=== PATIENT | female | born 1940 | race Caucasian/White ===

== ENCOUNTER 2024-09-14 17:35 | Inpatient (IN) | payer MEDICARE ==
[2024-09-14 18:04] LABS: HEMATOCRIT 40.4 % (34.3-46.0); HEMOGLOBIN 13.3 g/dL (11.2-15.5); MEAN CORPUSCULAR HGB CONC 32.9 g/dL (31.6-35.5); MEAN CORPUSCULAR VOLUME 85.1 fL (81.4-99.0); PLATELET COUNT,PLT 160 K/uL (130-375); RED BLOOD CELL COUNT 4.75 M/uL (3.77-5.24); WHITE BLOOD CELL COUNT,WBC 17.5 K/uL (3.2-11.0)
[2024-09-14 18:18] LABS: ATYPICAL LYMPHOCYTES RARE; BAND ABSOLUTE MAN 0.18 K/uL; BAND PERCENT MAN 1 % (5-11); EOSINOPHILS PERCENT MAN 4 % (2-4); LYMPHOCYTES PERCENT MAN 60 % (24-44); MONOCYTES PERCENT MAN 4 % (2-6); NEUTROPHILS ABSOLUTE MAN 5.43 K/uL (1.0-7.6); SEG NEUTROPHILS PERCENT MAN 31 % (36-66)
[2024-09-14 18:20] LABS: ANION GAP 11.2 mmol/L (5.0-14.0); CALCIUM 9.5 mg/dL (8.5-10.1); CREATININE 0.5 mg/dL (0.6-1.0); EST CRCL DRUG DOSING (CG) 57.25 mL/min; POTASSIUM,K 3.2 mmol/L (3.6-5.2)
[2024-09-14 18:43] LABS: A/G RATIO 1.2 (1.2-2.2); ALANINE AMINOTRANSFERASE,ALT 34 U/L (12-78); ALBUMIN 3.8 g/dL (3.4-5.0); ALKALINE PHOSPHATASE 118 U/L (46-116); ASPARTATE AMNIOTRANSFERASE,AST 35 U/L (15-37); BILIRUBIN DIRECT 0.09 mg/dL (0.0-0.2); BILIRUBIN TOTAL 0.3 mg/dL (0.2-1.0); PROTEIN TOTAL,TP 6.9 g/dL (6.4-8.2)
[2024-09-14] MEDS ORDERED: Ondansetron 4 MG/2 ML SDV IV PRN (18:57)
[2024-09-14] MEDS: fentaNYL 50 MCG/ML SDV IVPUSH PRN (19:44)
[2024-09-14] MEDS ORDERED: fentaNYL 50 MCG/ML SDV IVPUSH PRN (20:52)
[2024-09-14] MEDS: Cyclobenzaprine 10 MG Tab PO PRN (22:52)
[2024-09-14] MEDS: Lactated Ringers 1,000 ML IV SCH (22:53)
[2024-09-14] MEDS: fentaNYL 50 MCG/ML SDV IVPUSH SCH (22:53)
[2024-09-15] MEDS: fentaNYL 50 MCG/ML SDV IVPUSH PRN (00:05)
[2024-09-15 12:51] LABS: BASOPHILS ABSOLUTE AUTO 0.07 K/uL (0.00-0.10); BASOPHILS PERCENT AUTO 0.5 % (0.1-1.3); EOSINOPHILS PERCENT AUTO 0.1 % (0.0-5.4); HEMATOCRIT 27.4 % (34.3-46.0); HEMOGLOBIN 9.2 g/dL (11.2-15.5); IMMATURE GRAN ABSOLUTE AUTO 0.06 K/uL (0.00-0.23); IMMATURE GRAN PERCENT AUTO 0.4 % (0.0-0.7); LYMPHOCYTES ABSOLUTE AUTO 6.01 K/uL (0.8-3.3); LYMPHOCYTES PERCENT AUTO 40.9 % (11.4-47.7); MEAN CORPUSCULAR HGB CONC 33.6 g/dL (31.6-35.5); MEAN CORPUSCULAR VOLUME 83.5 fL (81.4-99.0); MONOCYTES ABSOLUTE AUTO 0.74 K/uL (0.20-0.90); NEUTROPHILS ABSOLUTE AUTO 7.81 K/uL (1.0-7.6); NEUTROPHILS PERCENT AUTO 53.1 % (40.0-78.1); PLATELET COUNT,PLT 137 K/uL (130-375); RED BLOOD CELL COUNT 3.28 M/uL (3.77-5.24); WHITE BLOOD CELL COUNT,WBC 14.7 K/uL (3.2-11.0)
[2024-09-15 13:00] LABS: EOSINOPHILS ABSOLUTE AUTO 0.02 K/uL (0.00-0.40)
[2024-09-15 13:58] LABS: APPEARANCE,URINE SLIGHTLY CLOUDY (CLEAR); BILIRUBIN,URINE NEGATIVE (NEGATIVE); COLOR,URINE YELLOW (YELLOW); GLUCOSE,URINE NEGATIVE (NEGATIVE); KETONES,URINE 15 mg/dL (NEGATIVE); LEUKOCYTE ESTERASE,URINE NEGATIVE (NEGATIVE); NITRITE,URINE NEGATIVE (NEGATIVE); OCCULT BLOOD,URINE NEGATIVE (NEGATIVE); PH,URINE 5.5 (5.0-8.0); PROTEIN,URINE >=300 mg/dL (NEGATIVE); UROBILINOGEN,URINE 0.2 EU/dL (0.2-1.0)
[2024-09-15] MEDS ORDERED: ceFAZolin 1 GM in Premix Bag 1 BAG IV ONE (14:00)
[2024-09-15 14:07] LABS: AMORPHOUS SEDIMENT,URINE MODERATE; BACTERIA,URINE NOT SEEN; EPITHELIAL CELLS,URINE FEW; MUCUS,URINE NOT SEEN; RBC,URINE 0-5 (0-5); WBC,URINE 0-5 (0-5)
[2024-09-15] MEDS: cefTRIAXone 2 GM in Water For Injection, Sterile 20 ML IV ONE (15:03)
[2024-09-15] MEDS ORDERED: oxyCODONE 5 MG Tab PO PRN (17:52)
[2024-09-15] MEDS: oxyCODONE 5 MG Tab PO PRN (23:42)
[2024-09-16 06:12] LABS: HEMATOCRIT 25.9 % (34.3-46.0); HEMOGLOBIN 8.5 g/dL (11.2-15.5); MEAN CORPUSCULAR HEMOGLOBIN 28.1 pg (31.6-35.5); MEAN CORPUSCULAR HGB CONC 32.8 g/dL (31.6-35.5); MEAN CORPUSCULAR VOLUME 85.5 fL (81.4-99.0); RED BLOOD CELL COUNT 3.03 M/uL (3.77-5.24); WHITE BLOOD CELL COUNT,WBC 12.8 K/uL (3.2-11.0)
[2024-09-16] MEDS ORDERED: fentaNYL 100 MCG/2 ML SDV ONE ×2 (10:24→11:31)
[2024-09-16] MEDS ORDERED: Midazolam 1 MG/ML 2 ML SDV ONE (10:24)
[2024-09-16] MEDS ORDERED: Propofol 200 MG/20 ML SDV ONE ×2 (10:24→10:50)
[2024-09-16] MEDS ORDERED: Dexamethasone 4 MG/ML SDV ONE (10:50)
[2024-09-16] MEDS ORDERED: Sugammadex Sodium 200 MG/2 ML VIAL IV ONE (10:50)
[2024-09-16] MEDS ORDERED: Ondansetron 4 MG/2 ML SDV ONE (10:50)
[2024-09-16] MEDS ORDERED: Phenylephrine 1% 10 MG/ML SDV ONE (11:10)
[2024-09-16] MEDS ORDERED: Sodium Chloride 0.9% 10 ML ONE (11:10)
[2024-09-16] MEDS: cefTRIAXone 2 GM in Sodium Chloride 0.9% 50 ML IV ONE (11:24)
[2024-09-16] MEDS: Bupivacaine 0.25%/EPINEPHrine 1:200,000 30 ML SDV ONE (11:57)
[2024-09-16] MEDS ORDERED: Naloxone 0.4 MG/ML SDV ONE (12:23)
[2024-09-16] MEDS ORDERED: ceFAZolin 1 GM in Sodium Chloride 0.9% 50 ML IV SCH (13:00)
[2024-09-16] MEDS: Acetaminophen 325 MG Tab PO SCH (16:17)
[2024-09-16 20:25] LABS: BASOPHILS ABSOLUTE AUTO 0.05 K/uL (0.00-0.10); BASOPHILS PERCENT AUTO 0.4 % (0.1-1.3); EOSINOPHILS ABSOLUTE AUTO 0.03 K/uL (0.00-0.40); EOSINOPHILS PERCENT AUTO 0.2 % (0.0-5.4); HEMATOCRIT 23.1 % (34.3-46.0); HEMOGLOBIN 7.5 g/dL (11.2-15.5); IMMATURE GRAN ABSOLUTE AUTO 0.06 K/uL (0.00-0.23); IMMATURE GRAN PERCENT AUTO 0.4 % (0.0-0.7); LYMPHOCYTES ABSOLUTE AUTO 4.07 K/uL (0.8-3.3); LYMPHOCYTES PERCENT AUTO 29.5 % (11.4-47.7); MEAN CORPUSCULAR HEMOGLOBIN 28.3 pg (31.6-35.5); MEAN CORPUSCULAR HGB CONC 32.5 g/dL (31.6-35.5); MEAN CORPUSCULAR VOLUME 87.2 fL (81.4-99.0); MONOCYTES ABSOLUTE AUTO 0.94 K/uL (0.20-0.90); MONOCYTES PERCENT AUTO 6.8 % (3.3-12.6); NEUTROPHILS ABSOLUTE AUTO 8.65 K/uL (1.0-7.6); NEUTROPHILS PERCENT AUTO 62.7 % (40.0-78.1); PLATELET COUNT,PLT 120 K/uL (130-375); RED BLOOD CELL COUNT 2.65 M/uL (3.77-5.24); WHITE BLOOD CELL COUNT,WBC 13.8 K/uL (3.2-11.0)
[2024-09-16] MEDS: Aspirin 325 MG Tab.EC PO SCH (21:59)
[2024-09-16] MEDS: ceFAZolin 1 GM in Premix Bag 1 BAG IV SCH (22:07)
[2024-09-17 04:06] LABS: BASOPHILS ABSOLUTE AUTO 0.04 K/uL (0.00-0.10); BASOPHILS PERCENT AUTO 0.3 % (0.1-1.3); EOSINOPHILS ABSOLUTE AUTO 0.07 K/uL (0.00-0.40); EOSINOPHILS PERCENT AUTO 0.6 % (0.0-5.4); HEMATOCRIT 23.3 % (34.3-46.0); HEMOGLOBIN 7.3 g/dL (11.2-15.5); IMMATURE GRAN ABSOLUTE AUTO 0.04 K/uL (0.00-0.23); IMMATURE GRAN PERCENT AUTO 0.3 % (0.0-0.7); LYMPHOCYTES PERCENT AUTO 44.7 % (11.4-47.7); MEAN CORPUSCULAR HEMOGLOBIN 28.1 pg (31.6-35.5); MEAN CORPUSCULAR HGB CONC 31.3 g/dL (31.6-35.5); MEAN CORPUSCULAR VOLUME 89.6 fL (81.4-99.0); MONOCYTES ABSOLUTE AUTO 0.62 K/uL (0.20-0.90); NEUTROPHILS ABSOLUTE AUTO 6.04 K/uL (1.0-7.6); NEUTROPHILS PERCENT AUTO 49.1 % (40.0-78.1); PLATELET COUNT,PLT 120 K/uL (130-375); WHITE BLOOD CELL COUNT,WBC 12.3 K/uL (3.2-11.0)
[2024-09-17 04:22] LABS: CALCIUM 8.5 mg/dL (8.5-10.1); CREATININE 0.7 mg/dL (0.6-1.0); EST CRCL DRUG DOSING (CG) 40.32 mL/min; POTASSIUM,K 3.4 mmol/L (3.6-5.2)
[2024-09-17 04:25] LABS: ANION GAP 9.4 mmol/L (5.0-14.0)
[2024-09-17] MEDS: Potassium Chloride 10 MEQ in Premix Bag 1 BAG IV ONE (06:41)
[2024-09-17] MEDS: Potassium Chloride 20 MEQ Tab.ER PO ONE (08:32)
[2024-09-17] MEDS: Potassium Chloride 20 MEQ Tab.ER ONE (08:34)
[2024-09-17] MEDS ORDERED: Aspirin 81 MG Tab.Chew PO SCH (09:00)
[2024-09-17] MEDS: cefTRIAXone 2 GM in Sodium Chloride 0.9% 50 ML IV SCH (12:35)
[2024-09-17] MEDS: Ketorolac 15 MG/ML SDV IVPUSH ONE (12:36)
[2024-09-17] MEDS: Acetaminophen Soln 650 MG/20.3 ML UD Cup PO SCH (16:03)
[2024-09-17 18:00] LABS: ANAPLASMA PHAGOCYTOPHILUM PCR Not Detected; BABESIA MICROTI BY PCR Not Detected; BABESIA SPECIES BY PCR Not Detected; EHRLICHIA CHAFFEENSIS BY PCR Not Detected; EHRLICHIA EWINGII/CANIS BY PCR Not Detected; EHRLICHIA MURIS-LIKE BY PCR Not Detected
[2024-09-18 08:58] LABS: HEMATOCRIT 30.6 % (34.3-46.0); HEMOGLOBIN 10.1 g/dL (11.2-15.5); MEAN CORPUSCULAR HEMOGLOBIN 29.1 pg (31.6-35.5); MEAN CORPUSCULAR VOLUME 88.2 fL (81.4-99.0); RED BLOOD CELL COUNT 3.47 M/uL (3.77-5.24); WHITE BLOOD CELL COUNT,WBC 14.1 K/uL (3.2-11.0)
[2024-09-18] MEDS ORDERED: cefTRIAXone 1 GM in Sodium Chloride 0.9% 50 ML IV SCH (10:00)
[2024-09-18] MEDS ORDERED: ALPRAZolam 0.25 MG Tab PO PRN (18:39)
[2024-09-18] MEDS: LORazepam 2 MG/ML SDV IM STA ×2 (19:26→20:06)
[2024-09-19 05:48] LABS: HEMATOCRIT 26.5 % (34.3-46.0); HEMOGLOBIN 8.8 g/dL (11.2-15.5); MEAN CORPUSCULAR HEMOGLOBIN 29.6 pg (31.6-35.5); MEAN CORPUSCULAR HGB CONC 33.2 g/dL (31.6-35.5); MEAN CORPUSCULAR VOLUME 89.2 fL (81.4-99.0); RED BLOOD CELL COUNT 2.97 M/uL (3.77-5.24); WHITE BLOOD CELL COUNT,WBC 12.4 K/uL (3.2-11.0)
[2024-09-19] MEDS ORDERED: Haloperidol 1 MG Tab PO PRN (12:26)
[2024-09-19] MEDS: Sennosides 8.6 MG Tab PO SCH (15:10)
[2024-09-19] MEDS: Polyethylene Glycol 3350 Powder 17 GM Packet PO ONE (15:10)
[2024-09-19] MEDS: Melatonin 3 MG Tab PO SCH (21:05)
[2024-09-19] MEDS: Doxycycline 100 MG Cap PO SCH (21:08)
[2024-09-19] MEDS: Cefdinir 300 MG Cap PO SCH (21:09)
[2024-09-20] MEDS: Lisinopril 5 MG Tab PO ONE (00:10)
[2024-09-20] MEDS: Acetaminophen 325 MG Tab PO SCH (04:33)
[2024-09-20 05:00] LABS: HEMATOCRIT 30.1 % (34.3-46.0); HEMOGLOBIN 9.5 g/dL (11.2-15.5); MEAN CORPUSCULAR HEMOGLOBIN 28.4 pg (31.6-35.5); MEAN CORPUSCULAR HGB CONC 31.6 g/dL (31.6-35.5); MEAN CORPUSCULAR VOLUME 89.9 fL (81.4-99.0); RED BLOOD CELL COUNT 3.35 M/uL (3.77-5.24); WHITE BLOOD CELL COUNT,WBC 19.2 K/uL (3.2-11.0)
[2024-09-20 08:19] LABS: A/G RATIO 0.7 (1.2-2.2); ALANINE AMINOTRANSFERASE,ALT 27 U/L (12-78); ALBUMIN 2.6 g/dL (3.4-5.0); ALKALINE PHOSPHATASE 93 U/L (46-116); ASPARTATE AMNIOTRANSFERASE,AST 28 U/L (15-37); BILIRUBIN TOTAL 0.6 mg/dL (0.2-1.0); BLOOD UREA NITROGEN,BUN 14 mg/dL (7-18); C-REACTIVE PROTEIN 10.81 mg/dL (<0.50); CALCIUM 9.7 mg/dL (8.5-10.1); CARBON DIOXIDE,CO2 33 mmol/L (21-32); CHLORIDE,CL 105 mmol/L (100-108); CREATININE 0.6 mg/dL (0.6-1.0); EST CRCL DRUG DOSING (CG) 47.04 mL/min; ESTIMATED GFR 87 mL/min (>60); GLUCOSE RANDOM 121 mg/dL (74-106); MAGNESIUM 1.6 mg/dL (1.8-2.4); POTASSIUM,K 3.2 mmol/L (3.6-5.2); PROTEIN TOTAL,TP 6.4 g/dL (6.4-8.2); SODIUM,NA 146 mmol/L (140-148)
[2024-09-20 08:20] LABS: ANION GAP 11.2 mmol/L (5.0-14.0)
[2024-09-20] MEDS: Magnesium Oxide 400 MG Tab PO SCH (10:47)
[2024-09-20] MEDS: Potassium Chloride 20 MEQ Tab.ER PO ONE ×2 (10:48→16:54)
[2024-09-20] MEDS: Levofloxacin/Dextrose 5%-Water 750 MG in Premix Bag 1 BAG IV SCH (10:48)
[2024-09-20] MEDS ORDERED: VANCOmycin 1 GM SDV IV SCH (11:00)
[2024-09-20] MEDS: Magnesium Sulfate/Water Premix 2 GM in Premix Bag 1 BAG IV SCH (12:07)
[2024-09-20] MEDS: VANCOmycin 1.25 GM in Sodium Chloride 0.9% 250 ML IV SCH (13:12)
[2024-09-20 14:03] LABS: APPEARANCE,URINE SLIGHTLY CLOUDY (CLEAR); BILIRUBIN,URINE NEGATIVE (NEGATIVE); COLOR,URINE YELLOW (YELLOW); GLUCOSE,URINE NEGATIVE (NEGATIVE); KETONES,URINE TRACE mg/dL (NEGATIVE); LEUKOCYTE ESTERASE,URINE NEGATIVE (NEGATIVE); NITRITE,URINE NEGATIVE (NEGATIVE); OCCULT BLOOD,URINE NEGATIVE (NEGATIVE); PROTEIN,URINE 100 mg/dL (NEGATIVE); UROBILINOGEN,URINE 0.2 EU/dL (0.2-1.0)
[2024-09-20 14:10] LABS: AMORPHOUS SEDIMENT,URINE NOT SEEN; BACTERIA,URINE MODERATE; EPITHELIAL CELLS,URINE RARE; MUCUS,URINE MODERATE; RBC,URINE 0-5 (0-5); WBC,URINE 0-5 (0-5)
[2024-09-20] MEDS: Ketorolac 15 MG/ML SDV IVPUSH ONE (20:14)
[2024-09-21 05:32] LABS: HEMATOCRIT 29.6 % (34.3-46.0); HEMOGLOBIN 9.3 g/dL (11.2-15.5); MEAN CORPUSCULAR HEMOGLOBIN 28.4 pg (31.6-35.5); MEAN CORPUSCULAR HGB CONC 31.4 g/dL (31.6-35.5); MEAN CORPUSCULAR VOLUME 90.2 fL (81.4-99.0); RED BLOOD CELL COUNT 3.28 M/uL (3.77-5.24); WHITE BLOOD CELL COUNT,WBC 17.2 K/uL (3.2-11.0)
[2024-09-21 05:48] LABS: CREATININE 0.5 mg/dL (0.6-1.0); POTASSIUM,K 4.8 mmol/L (3.6-5.2)
[2024-09-21 05:49] LABS: ANION GAP 7.8 mmol/L (5.0-14.0); CALCIUM 9.3 mg/dL (8.5-10.1); EST CRCL DRUG DOSING (CG) 56.44 mL/min; MAGNESIUM 2.2 mg/dL (1.8-2.4); VANCOMYCIN RANDOM 6.2 ug/mL (0.0-50.0)
[2024-09-21] MEDS ORDERED: Metoprolol Tartrate 5 MG in Sodium Chloride 0.9% 50 ML IV ONE (09:13)
[2024-09-21] MEDS: VANCOmycin 0.75 GM in Sodium Chloride 0.9% 250 ML IV SCH (09:14)
[2024-09-21] MEDS: traMADol 50 MG Tab PO PRN (11:10)
[2024-09-21] MEDS: Metoprolol Tartrate 5 MG/5 ML SDV IV ONE (11:13)
[2024-09-21] MEDS: Metoprolol Tartrate 25 MG Tab PO SCH (17:57)
[2024-09-21] MEDS: Metoprolol Tartrate 25 MG Tab PO ONE (18:13)
[2024-09-22 05:54] LABS: HEMATOCRIT 32.6 % (34.3-46.0); HEMOGLOBIN 10.2 g/dL (11.2-15.5); MEAN CORPUSCULAR HEMOGLOBIN 28.5 pg (31.6-35.5); MEAN CORPUSCULAR HGB CONC 31.3 g/dL (31.6-35.5); MEAN CORPUSCULAR VOLUME 91.1 fL (81.4-99.0); RED BLOOD CELL COUNT 3.58 M/uL (3.77-5.24); WHITE BLOOD CELL COUNT,WBC 17.6 K/uL (3.2-11.0)
[2024-09-22 06:12] LABS: A/G RATIO 0.7 (1.2-2.2); ALANINE AMINOTRANSFERASE,ALT 30 U/L (12-78); ALBUMIN 2.6 g/dL (3.4-5.0); ALKALINE PHOSPHATASE 121 U/L (46-116); ANION GAP 6.8 mmol/L (5.0-14.0); ASPARTATE AMNIOTRANSFERASE,AST 31 U/L (15-37); BILIRUBIN TOTAL 0.7 mg/dL (0.2-1.0); BLOOD UREA NITROGEN,BUN 16 mg/dL (7-18); CALCIUM 9.1 mg/dL (8.5-10.1); CARBON DIOXIDE,CO2 32 mmol/L (21-32); CHLORIDE,CL 101 mmol/L (100-108); CREATININE 0.5 mg/dL (0.6-1.0); EST CRCL DRUG DOSING (CG) 56.44 mL/min; ESTIMATED GFR 91 mL/min (>60); GLUCOSE RANDOM 111 mg/dL (74-106); POTASSIUM,K 4.5 mmol/L (3.6-5.2); PROTEIN TOTAL,TP 6.2 g/dL (6.4-8.2); SODIUM,NA 140 mmol/L (140-148)
[2024-09-22] MEDS: Metoprolol Tartrate 25 MG Tab PO SCH (08:36)
[2024-09-22] MEDS ORDERED: Sodium Chloride 0.9% 10 ML Syringe IV PRN (08:45)
[2024-09-22] MEDS: Aspirin 325 MG Tab.EC PO SCH (09:10)
[2024-09-22] MEDS: Levofloxacin 250 MG Tab PO ONE (09:12)
== END 2024-09-22 10:25 | DRG 481 ==
LOC: JP.ED 17:35 → JP.MS 18:58
PROVIDERS: ADMIT Specialist; ATTEND Specialist
PROC: 0QS636Z Reposition Right Upper Femur with Intramedullary Internal Fixation Device, Percutaneous Approach (ICD-10-PCS; principal; 2024-09-15)
DX: M80.051A Age-related osteoporosis with current pathological fracture, right femur, initial encounter for fracture (principal); D62 Acute posthemorrhagic anemia; I10 Essential (primary) hypertension; E03.9 Hypothyroidism, unspecified; D72.829 Elevated white blood cell count, unspecified; W18.30XA Fall on same level, unspecified, initial encounter; R41.0 Disorientation, unspecified; E83.42 Hypomagnesemia; E87.6 Hypokalemia; Z86.73 Personal history of transient ischemic attack (TIA), and cerebral infarction without residual deficits; Z79.82 Long term (current) use of aspirin; Z79.899 Other long term (current) drug therapy; Z98.890 Other specified postprocedural states
CPT/HCPCS: 01230-QZ; 36415; 36430; 71045; 71045-26; 73502-26-RT; 73502-RT; 76000; 80048; 80053; 80076; 80202; 81001; 83735; 84132; 84145; 84484; 85018; 85025; 85027; 86140; 86850; 86900; 86901; 86920; 86922; 87040; 87468; 87469; 87484; 87798; 93005; 93010; 97110-GP; 97116-GP; 97129-GN; 97161-GP; 97165-GO; 97535-GO; 99231; 99232; 99233; 99239; 99285; A9270-GY; C1713; J0689; J0696; J1100; J1885; J1956; J2060; J2250; J2310; J2371; J2405; J2704; J3010; J3475; J3480; J3490; J7050; J7120; P9016